=== PATIENT | female | born 1995 | race Caucasian/White ===

== ENCOUNTER 2016-10-02 21:21 | Emergency (ER) | payer BC ==
[~2016-10-02] VITALS: Ht 170.2 cm; Wt 81.2 kg
[2016-10-02] MEDS ORDERED: PRENATAL PLUS I1 TAB PO (23:36)
== END 2016-10-02 23:28 | disposition short-term general hospital (02) ==
LOC: ER 21:21
DX: O26.851 Spotting complicating pregnancy, first trimester (principal); Z79.899 Other long term (current) drug therapy; Z3A.01 Less than 8 weeks gestation of pregnancy

== ENCOUNTER 2016-10-09 23:21 | Emergency (ER) | payer BC ==
[~2016-10-09] VITALS: Ht 170.2 cm; Wt 81.6 kg
[~2016-10-09 23:21] MED LIST: PRENATAL PLUS I1 TAB PO
== END 2016-10-10 03:35 | disposition short-term general hospital (02) ==
LOC: ER 23:21
DX: O03.9 Complete or unspecified spontaneous abortion without complication (principal); F41.9 Anxiety disorder, unspecified; Z79.899 Other long term (current) drug therapy